=== PATIENT | female | born 2000 | race Two or more races ===

== ENCOUNTER 2024-06-02 08:39 | Emergency (ER) | payer MEDICAID, SELFPAY ==
[2024-06-02 08:51] VITALS: BP 115/70; PULSE 68; RESP 18; TEMP 36.9; O2SAT 98; BMI 25.4
--- NOTE | 2024-06-02 08:57 | XR_ITS ---
Examination: Abdomen sonogram, Limited Date and time of exam: June 02, 2024 0936 hrs. Indications: Status post cholecystectomy with right upper abdominal pain beginning 10 months ago Technique: Real-time jason scale transabdominal sonographic images of the upper abdomen obtained. Findings: Absent gallbladder Normal common bile duct 0.4 cm Pancreatic head 1.9 cm Liver 14 cm fatty infiltration no focal liver lesions Normal hepatopedal portal venous flow Patent IVC Impression: Normal common bile duct. Fatty liver
[2024-06-02 09:21] LABS: Basophils % (Auto) 1 % (0-2.5); Eosinophils # (Auto) 0.1 Thou/mm3 (0.0-0.5); Eosinophils % (Auto) 1 % (0-10); Hematocrit 41.5 % (36.0-46.0); Hemoglobin 13.9 g/dL (12.0-16.0); Immature Granulocytes % (Auto) 0 % (0-0); Immature Granulocytes Auto 0.01 Thou/mm3 (0.00-0.00); Lymphocytes # (Auto) 1.5 Thou/mm3 (1.0-4.8); Lymphocytes % (Auto) 24 % (10-50); Mean Corpuscular HGB Conc 33.5 g/dl (31.0-37.0); Mean Corpuscular Hemoglobin 31.7 pg (25.0-35.0); Mean Corpuscular Volume 95 fL (80-100); Monocytes # (Auto) 0.4 Thou/mm3 (0.0-0.8); Monocytes % (Auto) 7 % (0-12); Neutrophils # (Auto) 4.1 Thou/mm3 (1.8-7.7); Neutrophils % (Auto) 67 % (37-80); Nucleated Red Blood Cell % 0 /100 WBC (0); Platelet Count 232 Thou/mm3 (140-440); RDW Standard Deviation 43.3 fL (36.4-46.3); Red Blood Count 4.38 Miln/mm3 (4.00-5.20); White Blood Count 6.2 Thou/mm3 (3.6-11.0)
[2024-06-02 09:33] LABS: Collection Type, Urine Clean Catch
[2024-06-02 09:44] LABS: Bilirubin,Urine Negative (Negative); Blood,Urine Negative (Negative); Clarity,Urine Clear (Clear/Hazy); Color,Urine Lt-Yellow (Lt Yel-Yel); Culture Indicated,Urine Not Indicated; Glucose, Urine Negative (Negative); Ketones,Urine Negative (Negative); Leukocyte Esterase,Urine Positive (Negative); Nitrite,Urine Negative (Negative); PH,Urine 5.5 (5.0-7.0); Protein,Urine Negative (Neg - Trace); RBC,Urine 1 /hpf (0-3); Specific Gravity,Urine 1.021 (1.001-1.035); Squamous Epithelial Cell,Urine 2 /hpf (0-5); Urobilinogen,Urine Negative mg/dL (0.0-1.0); WBC,Urine 2 /hpf (0-5)
[2024-06-02 09:44] LABS: Alanine Aminotransferase 38 U/L (10-49); Albumin, Serum 4.4 gm/dL (3.5-5.0); Albumin/Globulin Ratio 1.5 (1.2-2.2); Alkaline Phosphatase 51 U/L (46-116); Anion Gap 8 (7-16); Aspartate Amino Transferase 64 U/L (0-34); BUN/Creatinine Ratio 16 Ratio (12-20); Bilirubin,Total 0.4 mg/dL (0.3-1.2); Blood Urea Nitrogen 11 mg/dL (9-23); Carbon Dioxide 25.5 mMol/L (20.0-31.0); Chloride 107 mMol/L (98-107); Creatinine (Component) 0.7 mg/dL (0.6-1.3); Estimated Creatinine Clearance 101.3 mL/min (>60); Glucose 106 mg/dL (74-106); Lipase 31 U/L (12-53); Osmolality,Calculated 278 (275-295); Potassium 3.6 mMol/L (3.4-5.1); Sodium 140 mMol/L (136-145); Total Protein 7.4 gm/dL (5.7-8.2); eGFR > 60 See Note
[2024-06-02 09:47] LABS: HCG Qualitative,Urine Negative
[2024-06-02] MEDS: FAMOTIDINE 20 MG TABLET PO (10:45)
[2024-06-02] MEDS: LIDOCAINE VISCOUS 2% 15 ML UDC PO (10:45)
[2024-06-02] MEDS: MG HYD/AL HYD/SIME (Maalox Reg) SUSP 30 ML UDC PO (10:45)
--- NOTE | 2024-06-02 11:38 | PD.EDABDPN ---
ED Abdominal Pain RME/HPI General Chief Complaint: Abdominal Pain Stated complaint: Abdominal pain Time seen by provider: 06/02/24 08:57 Arrival date/time: 06/02/24 08:39 23-year-old female presents to the emergency department today for complaint of upper abdominal pain patient for symptoms ongoing x 1 day patient has had similar symptoms in the past Limitations: no limitations Related Data Home Medications ?Medication ?Instructions ?Recorded ?Confirmed ferrous sulfate 134 mg (27 mg 134 mg PO QDAY 08/04/23 08/04/23 iron) tablet multivitamin 1 tab PO QAM 08/04/23 08/04/23 Previous Rx's ?Medication ?Instructions ?Recorded docusate sodium 100 mg capsule 100 mg PO BID #40 caps 08/05/23 (Colace) hydrocodone 5 mg-acetaminophen 325 1 tab PO Q8H PRN pain (scale score 08/05/23 mg tablet 7-10) #12 tabs ibuprofen 600 mg tablet 600 mg PO Q8H PRN pain (scale 08/05/23 score 4-6) #15 tabs metoclopramide HCl 10 mg tablet 10 mg PO Q6H PRN nausea and 06/02/24 (Reglan) vomiting #30 tabs Allergies Allergy/AdvReac Type Severity Reaction Status Date / Time No Known Allergies Allergy Verified 06/02/24 08:43 Review of Systems Review of Systems Systems Reviewed: All systems reviewed, normal except as documented Constitutional Constitutional: Reports system reviewed and no additional complaints, except as documented, Denies fever(s) and Denies headache(s) Eyes Eyes: Reports system reviewed and no additional complaints, except as documented and Denies blurry vision ENT Ears, Nose, Mouth, and Throat: Reports system reviewed and no additional complaints, except as documented, Denies headache(s), Denies nasal congestion and Denies nasal discharge Cardiovascular Cardiovascular: Reports system reviewed and no additional complaints, except as documented, Denies chest pain and Denies dyspnea Respiratory Respiratory: Reports system reviewed and no additional complaints, except as documented, Denies chest congestion, Denies cough and Denies dyspnea Gastrointestinal Gastrointestinal: Reports system reviewed and no additional complaints, except as documented and Reports abdominal pain Integumentary/Breasts Skin/Breast: Reports system reviewed and no additional complaints, except as documented and Denies rash Neurologic Neurologic: Reports system reviewed and no additional complaints, except as documented, Reports as per HPI and Denies headache(s) Past Medical History Past Medical History NEUROLOGIC: Negative Neurological Disorders or Seizures CARDIAC: Negative Cardiac Disorders or Congestive Heart Failure RESPIRATORY: Negative Chronic Obstructive Pulmonary Disease (COPD) GASTROINTESTINAL: Positive Gastrointestinal Disorders and Gall Bladder Disease; Negative Hepatitis or Colorectal Cancer GENITOURINARY: Negative Genitourinary Disorders, Renal Disease or Prostate Cancer REPRODUCTIVE: Positive Previous Pregnancies; Negative Breast Cancer or Testicular Cancer MUSCULOSKELETAL: Negative Musculoskeletal Disorders or Bone Cancer ENDOCRINE: Negative Endocrine Disorders, Diabetes Mellitus Type 1 or Diabetes Mellitus Type 2 HEMATOLOGIC: Negative Blood Disorders OTHER HISTORY: Negative Hospitalization, Autoimmune Disease, Down Syndrome, Developmental Delay, Shingles, Falls, Blood Transfusions, Blood Transfusion Reaction, Anesthesia Reactions, Organ Transplant, Chemotherapy, Radiation Therapy, Hyperbaric Therapy, MRSA, VRSA, Vancomycin-Resistant Enterococci, Clostridium Difficile, Cancer, Breast Cancer, Cervical Cancer, Colorectal Cancer, Lung Cancer, Ovarian Cancer, Prostate Cancer or Testicular Cancer Family History FAMILY HISTORY: Positive Family Surgery; Negative Family Psychiatric Problems, Family Respiratory Disorders, Family Cardiac Disorders, Family Gastrointestinal Problems, Family Cancer or Family Anesthesia Reaction Surgical History SURGICAL: Positive Abdominal Surgery; Negative Endocrine Surgery, Thyroidectomy, Ear Surgery, Nephrectomy, Joint Replacement, Neurologic Surgery, Mastectomy, Lumpectomy, Hysterectomy, Tubal Ligation, Section or Organ Transplant Social History SMOKING STATUS: Never smoker SUBSTANCE USE: does not use ED Exam General Limitations: Present no limitations General appearance: Present alert and in no apparent distress Head Head exam: Present atraumatic Eye Eye exam: Present normal appearance, PERRL and EOMI ENT ENT exam: Present normal exam, normal oropharynx and mucous membranes moist Neck Neck exam: Present normal inspection, full ROM and trachea midline Chest Chest inspection: Present normal inspection and symmetric chest wall rise Respiratory Respiratory exam: Present normal lung sounds bilaterally Cardiovascular Cardiovascular exam: Present regular rate, normal rhythm and normal heart sounds Abdominal Exam Abdominal exam: Present soft and normal bowel sounds Extremities Exam Extremities exam: Present normal inspection and full ROM Back Exam Back exam: Present normal inspection and full ROM Neurological Exam Neurological exam: Present alert, oriented X3 and CN II-XII intact Psychiatric Psychiatric exam: Present normal affect and normal mood Skin Skin exam: Present warm, dry, intact and normal color Course Quality Measures none Orders Category Date Time Status US gall bladder Stat Exams 06/02/24 08:57 Completed CBC Stat Lab 06/02/24 09:07 Completed Comprehensive Metabolic Panel Stat Lab 06/02/24 09:07 Completed HCG Qualitative,Urine Stat Lab 06/02/24 09:23 Completed Lipase Stat Lab 06/02/24 09:07 Completed UA, C/S IF [Urinalysis, C/S if Indicated] Stat Lab 06/02/24 09:23 Completed Famotidine [Pepcid] Med 06/02/24 08:58 Discontinued 20 mg PO X1 ONE Lidocaine 2% Viscous [Xylocaine 2% Viscous] Med 06/02/24 08:58 Discontinued 15 ml PO X1 ONE mg Hyd/Al Hyd/Debbi Susp [Maalox Susp] Med 06/02/24 08:58 Discontinued 30 ml PO X1 ONE Vital Signs Vital signs: Vital Signs Temperature 98.5 F 06/02/24 08:51 Pulse Rate 68 06/02/24 08:51 Respiratory Rate 18 06/02/24 08:51 Blood Pressure 115/70 06/02/24 08:51 Pulse Oximetry (%) 98 06/02/24 08:51 Oxygen Delivery Method Room Air 06/02/24 08:51 O2 saturation 98% room air within normal limits Abdominal Pain MDM MDM Narrative MDM Narrative:: 23-year-old female presents to the emergency department today for complaint of upper abdominal pain patient for symptoms ongoing x 1 day patient has had similar symptoms in the past On exam patient well-appearing patient does not appear toxic no acute distress patient has soft nontender abdomen no lower abdominal pain Lab work and imaging obtained no acute emergent findings noted Patient discharged home in no distress to follow-up with primary care doctor in the next 24 to 48 hours and for any worsening symptoms to return to the ER immediately Patient data External records reviewed:: [facility] previous records Clinical information provided by:: patient Social determinants that could affect healthcare access:: none Patient has the following chronic illnesses:: None How is presenting disease/condition affected by chronic disease/condition?: no chronic disease Evaluation data The following diagnostics were reviewed and interpreted by me:: lab results and radiology exam(s) Lab and/or radiology exams considered but not ordered:: Labs and radiology obtained, Interpretation Summary: Reviewed by me Medications / Prescriptions Medications or Prescriptions considered but not ordered:: Given Medication administrations:: Medication Administration History Discontinued Medications Al Hydrox/Mg Hydrox/Simethicone (Mg Hyd/Al Hyd/Debbi (Maalox Reg) Susp 30 Ml Udc) 30 ml PO X1 ONE Stop: 06/02/24 08:59 Last Admin: 06/02/24 10:45 Dose: 30 ml Documented By: VONDA Famotidine (Famotidine 20 Mg Tablet) 20 mg PO X1 ONE Stop: 06/02/24 08:59 Last Admin: 06/02/24 10:45 Dose: 20 mg Documented By: VONDA Lidocaine HCl (Lidocaine Viscous 2% 15 Ml Udc) 15 ml PO X1 ONE Stop: 06/02/24 08:59 Last Admin: 06/02/24 10:45 Dose: 15 ml Documented By: VONDA Given Consultations Consultation(s) initiated? (list below): No Diagnosis Differential diagnosis abdominal pain: abdominal pain, acute appendicitis, diverticulitis, endometriosis and pancreatitis Most likely diagnosis given after review of the tests above:: Abdominal pain Admission Indicated Admission indicated?: not indicated Admission Request Was there a request for admission?: No Disposition Plan Disposition Plan: Discharge Discharge Attestation Discharge Attestation: The patient and all family members were given an opportunity to ask questions and understood the discharge instructions. Discharge instructions specifically effects, indications for sooner follow up or return to the emergency department, and the expected course of current diagnosis. Patient condition: Stable Discharge Plan Plan Patient Disposition: HOME (Self Care) Disposition Comment: Stable Prescriptions/Referrals Prescriptions/Med Rec: New metoclopramide HCl [Reglan] 10 mg tablet 10 mg PO Q6H PRN (Reason: nausea and vomiting) Qty: 30 0RF No Action multivitamin Tablet 1 tab PO QAM ferrous sulfate 134 mg (27 mg iron) Tablet 134 mg PO QDAY docusate sodium [Colace] 100 mg capsule 100 mg PO BID Qty: 40 0RF ibuprofen 600 mg tablet 600 mg PO Q8H PRN (Reason: pain (scale score 4-6)) Qty: 15 0RF hydrocodone-acetaminophen 5-325 mg tablet 1 tab PO Q8H MDD 3 PRN (Reason: pain (scale score 7-10)) Qty: 12 0RF Referrals: Lizeth Tang PA-C [Primary Care Provider] - 06/05/24 Problem List Clinical Impression: Abdominal pain Patient/Caregiver Discharge Instructions Education Materials: Abdominal Pain Additional Instructions: Please follow up with your primary care doctor in the next 24-48hrs for any worsening symptoms return here immediately Print Language: Guamanian Stand Alone Forms: Rebecca Award Info., Work/School Release, Patient Portal Info Letter PA/SCOURING PADS SUPERVISOR Supervising Physician PA/SCOURING PADS SUPERVISOR Supervising Physician: Dr galvez
--- NOTE | 2024-06-02 13:56 | PRELIM_ITS ---
Ultrasound gallbladder. June 02, 2024 0934 hours Clinical history: Patient does not have a gallbladder rule out CBD stone Comparison: No prior study is available for comparison. Findings: The liver measures 14 cm and demonstrates mild fatty infiltration. No intrahepatic biliary dilatation. No focal liver lesion seen. Hepatopetal flow is seen in main portal vein. Post-cholecystectomy status. The common bile duct is measuring 4 mm. No obstructing calculus is seen within the common bile duct. The pancreas is unremarkable to the extent visualized. The inferior vena cava is patent to the extent visualized. Impression: Post-cholecystectomy status. No evidence of choledocholithiasis. Mild fatty infiltration of liver. Report Electronically Signed By: Norm Sol 06/02/2024 1:55:52 PM [EST]
== END 2024-06-02 11:43 | disposition home or self-care (01) ==
PROVIDERS: Nurse Practitioner Primary Care; Emergency Provider Emergency Medicine; PCP Physician Assistant
DX: R10.10 Upper abdominal pain, unspecified (principal)
CPT/HCPCS: 36415; 76705; 80053; 81001; 81025; 83690; 85025; 99284; J3490; A9270

== ENCOUNTER → 2024-06-21 | Outpatient (CLI) | payer MEDICAID, SELFPAY ==
--- NOTE | 2024-06-21 08:30 | XR_ITS ---
Examination: Abdomen sonogram, complete Date and time of exam: June 22, 2023 0853 hours INDICATIONS: Right upper abdominal pain beginning several years ago. Technique: Multiple real-time grayscale transabdominal sonographic images of the abdomen have been obtained. Findings: Absent gallbladder. Normal common bile duct 0.2 cm Pancreatic head 1.6 cm Aorta not enlarged. Liver 13.6 cm fatty infiltration Normal hepatopedal portal venous flow Patent IVC Right kidney 11.0 cm renal cortex 1.4 cm Left kidney 10.1 cm cortex 2.0 cm Spleen 10.2 cm IMPRESSION: Absent gallbladder Normal common bile duct Fatty liver
== END | disposition home or self-care (01) ==
LOC: CDIM 08:25
PROVIDERS: PCP Physician Assistant; Referring Provider Physician Assistant; Visit Provider Physician Assistant
DX: K76.0 Fatty (change of) liver, not elsewhere classified (principal); Z90.49 Acquired absence of other specified parts of digestive tract
CPT/HCPCS: 76700

== ENCOUNTER → 2024-08-07 | Outpatient (CLI) | payer MEDICAID, SELFPAY ==
--- NOTE | 2024-08-07 09:30 | XR_ITS ---
Examination: Upper GI series with KUB Esophagram standard Fluoroscopy 24 spot fluoroscopic films of the esophagus and stomach [place] AP supine abdomen 2 views Date and time: August 07, 2024 0934 hours INDICATIONS: Right upper abdominal pain several years. FINDINGS: [employer] AP supine abdomen nonobstructive bowel gas pattern Patient swallowed thin barium with 24 spot fluoroscopic films of the esophagus stomach and duodenum obtained Primary peristaltic esophageal waves Mild intermittent gastroesophageal reflux Small sliding esophageal hernia Mucosal fold thickening in the gastric antrum with delayed emptying into the duodenum Significant mucosal edema spasm aorta bili duodenal bulb mucosal thickening in the duodenal sweep IMPRESSION: Mild intermittent gastroesophageal reflux Antral gastritis pattern Active peptic disease duodenum, no ulcer crater noted
== END | disposition home or self-care (01) ==
PROVIDERS: PCP Physician Assistant; Referring Provider Physician Assistant; Visit Provider Physician Assistant
DX: K21.9 Gastro-esophageal reflux disease without esophagitis (principal); K44.9 Diaphragmatic hernia without obstruction or gangrene
CPT/HCPCS: 74240; A4649